=== PATIENT | female | born 1960 | race Caucasian/White ===

== ENCOUNTER 2019-01-01 08:43 | Day surgery (SDC) | payer OTHER ==
[2019-01-01] MEDS ORDERED: LIDOCAINE 100 MG SYRINGE (09:55)
[2019-01-01] MEDS ORDERED: PROPOFOL 40 ML (09:55)
== END 2019-01-01 12:40 | disposition home or self-care (01) ==
LOC: GIL 08:43
DX: Z12.11 Encounter for screening for malignant neoplasm of colon (principal); K64.8 Other hemorrhoids; D12.5 Benign neoplasm of sigmoid colon; K62.1 Rectal polyp; E11.9 Type 2 diabetes mellitus without complications
CPT/HCPCS: 45380; 82962; 88305